=== PATIENT | female | born 1970 | race Caucasian/White ===

== ENCOUNTER 2018-01-06 15:36 | Emergency (ER) | payer MEDICAID, SELFPAY ==
[2018-01-06 15:42] VITALS: BP 143/83; PULSE 103; RESP 16; TEMP 36.2; O2SAT 98
--- NOTE | 2018-01-06 15:50 | DI.RAD_ITS ---
SYMPTOM/DIAGNOSIS: COUGH, CONGESTION, WHEEZE PA AND LATERAL CHEST: Comparison is made with 08/07/17. Heart size and pulmonary vasculature are within normal limits. No focal consolidating infiltrates, effusions or pneumothoraces are identified. There is mild atelectasis in the left lingula. Old healed rib fractures are seen on the left. There is an old left scapular fracture. IMPRESSION: Left basilar atelectasis.
--- NOTE | 2018-01-06 15:51 | W.ED.GENAD ---
Discharge Plan Disposition Patient Disposition: HOME Condition: Improving Discharge Details Chief Complaint: RespSymp Clinical Impression: COPD with acute exacerbation Primary Care Provider: Concha Guerrero ED Provider: Julius Contreras Home Meds and New Rx's Prescriptions: New prednisone 20 mg tablet 40 mg PO DAILY 5 Days Qty: 10 RF: 0 Continue albuterol sulfate [ProAir HFA] 200 PUFF/INH HFA aerosol inhaler 2 puff Inhalation Q4H PRN PRNRF: 0 Discharge Instructions Instructions: COPD (Chronic Obstructive Pulmonary Disease) (ED) Medical Decision Making 47-year-old female smoker presents with cough, congestion, wheeze over days time. She was prescribed Augmentin for sinusitis since December 30. She is afebrile, conversant, with normal oxygenation. Differential diagnosis includes COPD exacerbation, bronchitis versus pneumonia, viral syndrome. Patient given DuoNeb updraft, oral steroids, referred for chest Xray. Chest x-ray with atelectatic changes of the lingula. No infiltrate. Note of healed previous rib fractures. Patient improved. I will have her continue the Augmentin I will add a burst of steroids. She has a working inhaler and will continue to work on smoking cessation. She stable and appropriate outpatient management of COPD exacerbation. HPI General Mode of arrival: ambulatory. Date/Time Provider Initiated Documentation: 01/06/18 15:42. Limitations to Documentation: no limitations. Information obtained by: patient. History of Present Illness 47 year old F presents to the emergency department with the chief complaint of Cough, described as moderate, Quality is described as aching, and is localized to the chest. Patient reports no radiation. Patient started experiencing this day(s) and it has been constant. Other factors that worsen symptoms (cigarettes) . Patient did receive the following treatments prior to arrival, none HPI Narrative: Cough, congestion, wheeze: 47-year-old female smoker states that she has had 2 weeks of illness that began with a sinusitis and now has progressed to cough, congestion, production of green sputum with associated shortness of breath is minimally responsive to home inhaler. She was prescribed Augmentin by her primary care physician which she has been taking twice daily since December 30. She has not had any recent oral steroids. She is not oxygen dependent. Related Data Home Medications Medication Instructions Recorded Confirmed albuterol sulfate [ProAir HFA] 2 puff INHALATION Q4H PRN PRN 08/07/17 01/06/18 prednisone 40 mg PO DAILY 5 Days #10 tab 01/06/18 Previous Rx's Medication Instructions Recorded prednisone 40 mg PO DAILY 5 Days #10 tab 01/06/18 Allergies Allergy/AdvReac Type Severity Reaction Status Date / Time Sulfa (Sulfonamide Allergy Severe Hives Unverified 01/06/18 15:45 Antibiotics) General Stated Complaint: RespSymp FANG: 3 Review of Systems Review of Systems 8 out of 10 systems reviewed and otherwise neg PFSH Social History Smoking/Tobacco Use Status: Current every day Exam Narrative Exam Narrative: GEN: awake, alert, oriented 3. Pleasant, well groomed, interactive. HEAD: Normocephalic, atraumatic ENT: Mucous membranes moist, oropharynx unremarkable, External ear exam unremarkable EYES: PERRL, EOMI NECK: Full ROM, no JOSE, no menigismus CHEST/RESP: Nontender, bilateral end expiratory wheeze. Cough noted. CARDIOVASCULAR: RRR, no murmur, rub diane. 2+ Rad pulse bilateral ABDOMEN: Soft, nontender, no mass. +Bowel sounds EXT: Full ROM, no edema, no rash Neuro: Grossly normal neurologic exam, conversant, interactive. Psych: Speech fluent, thoughts congruent, affect normal Course Vital Signs Temperature 36.2 C L 01/06/18 15:42 Pulse 103 H 01/06/18 15:42 Respiratory Rate 16 01/06/18 15:42 Blood Pressure 143/83 H 01/06/18 15:42 Pulse Oximetry 98 01/06/18 15:42 Temperature 36.2 C L 01/06/18 15:42 Temperature Source Skin 01/06/18 15:42 Pulse 103 H 01/06/18 15:42 Respiratory Rate 16 01/06/18 15:42 Respiratory Effort Non-Labored 01/06/18 15:42 Blood Pressure 143/83 H 01/06/18 15:42 Blood Pressure Position Sitting 01/06/18 15:42 Pulse Oximetry 98 01/06/18 15:42 Oxygen Delivery Method Room Air 01/06/18 15:42 Oxygen Flow Rate 0 01/06/18 15:42 Pain Level 4 01/06/18 15:42
--- NOTE | 2018-01-06 15:54 | ED.GENADUL_ITS ---
Discharge Plan Disposition Patient Disposition: HOME Condition: Improving Discharge Details Chief Complaint: RespSymp Clinical Impression: COPD with acute exacerbation Primary Care Provider: Concha Guerrero ED Provider: Julius Contreras Home Meds and New Rx's Prescriptions: New prednisone 20 mg tablet 40 mg PO DAILY 5 Days Qty: 10 RF: 0 Continue albuterol sulfate [ProAir HFA] 200 PUFF/INH HFA aerosol inhaler 2 puff Inhalation Q4H PRN PRNRF: 0 Discharge Instructions Instructions: COPD (Chronic Obstructive Pulmonary Disease) (ED) Medical Decision Making 47-year-old female smoker presents with cough, congestion, wheeze over days time. She was prescribed Augmentin for sinusitis since December 30. She is afebrile, conversant, with normal oxygenation. Differential diagnosis includes COPD exacerbation, bronchitis versus pneumonia, viral syndrome. Patient given DuoNeb updraft, oral steroids, referred for chest Xray. Chest x-ray with atelectatic changes of the lingula. No infiltrate. Note of healed previous rib fractures. Patient improved. I will have her continue the Augmentin I will add a burst of steroids. She has a working inhaler and will continue to work on smoking cessation. She stable and appropriate outpatient management of COPD exacerbation. HPI General Mode of arrival: ambulatory . Date/Time Provider Initiated Documentation: 01/06/18 15:42 . Limitations to Documentation: no limitations . Information obtained by: patient . History of Present Illness 47 year old F presents to the emergency department with the chief complaint of Cough, described as moderate, Quality is described as aching, and is localized to the chest. Patient reports no radiation. Patient started experiencing this day(s) and it has been constant. Other factors that worsen symptoms (cigarettes) . Patient did receive the following treatments prior to arrival, none HPI Narrative: Cough, congestion, wheeze: 47-year-old female smoker states that she has had 2 weeks of illness that began with a sinusitis and now has progressed to cough, congestion, production of green sputum with associated shortness of breath is minimally responsive to home inhaler. She was prescribed Augmentin by her primary care physician which she has been taking twice daily since December 30. She has not had any recent oral steroids. She is not oxygen dependent. Related Data Home Medications Medication Instructions Recorded Confirmed albuterol sulfate [ProAir HFA] 2 puff INHALATION Q4H PRN PRN 08/07/17 01/06/18 prednisone 40 mg PO DAILY 5 Days #10 tab 01/06/18 Previous Rx's Medication Instructions Recorded prednisone 40 mg PO DAILY 5 Days #10 tab 01/06/18 Allergies Allergy/AdvReac Type Severity Reaction Status Date / Time Sulfa (Sulfonamide Allergy Severe Hives Unverified 01/06/18 15:45 Antibiotics) General Stated Complaint: RespSymp FANG: 3 Review of Systems Review of Systems 8 out of 10 systems reviewed and otherwise neg PFSH Social History Smoking/Tobacco Use Status: Current every day Exam Narrative Exam Narrative: GEN: awake, alert, oriented 3. Pleasant, well groomed, interactive. HEAD: Normocephalic, atraumatic ENT: Mucous membranes moist, oropharynx unremarkable, External ear exam unremarkable EYES: PERRL, EOMI NECK: Full ROM, no JOSE, no menigismus CHEST/RESP: Nontender, bilateral end expiratory wheeze. Cough noted. CARDIOVASCULAR: RRR, no murmur, rub diane. 2+ Rad pulse bilateral ABDOMEN: Soft, nontender, no mass. +Bowel sounds EXT: Full ROM, no edema, no rash Neuro: Grossly normal neurologic exam, conversant, interactive. Psych: Speech fluent, thoughts congruent, affect normal Course Vital Signs Temperature 36.2 C L 01/06/18 15:42 Pulse 103 H 01/06/18 15:42 Respiratory Rate 16 01/06/18 15:42 Blood Pressure 143/83 H 01/06/18 15:42 Pulse Oximetry 98 01/06/18 15:42 Temperature 36.2 C L 01/06/18 15:42 Temperature Source Skin 01/06/18 15:42 Pulse 103 H 01/06/18 15:42 Respiratory Rate 16 01/06/18 15:42 Respiratory Effort Non-Labored 01/06/18 15:42 Blood Pressure 143/83 H 01/06/18 15:42 Blood Pressure Position Sitting 01/06/18 15:42 Pulse Oximetry 98 01/06/18 15:42 Oxygen Delivery Method Room Air 01/06/18 15:42 Oxygen Flow Rate 0 01/06/18 15:42 Pain Level 4 01/06/18 15:42
[2018-01-06 15:55] VITALS: RESP 15; RESP 8
[2018-01-06] MEDS: Albuterol/Ipratropium 3 ML UPD VIAL UPD (15:55)
[2018-01-06] MEDS: predniSONE 20 MG TAB 60 MG PO (15:55)
[2018-01-06 16:25] VITALS: RESP 19; RESP 8
--- NOTE | 2018-01-06 16:47 | DI.VRAD_ITS ---
EXAM: XR Chest, 2 Views CLINICAL HISTORY: 47 years old, female; Signs and symptoms; Cough TECHNIQUE: Frontal and lateral views of the chest. COMPARISON: CR CHEST 2 VIEWS PA,LAT 08/07/2017 5:01 PM FINDINGS: Lungs: Subsegmental atelectasis in the lingula, interval finding Pleural space: Unremarkable. No pneumothorax. Heart: Unremarkable. No cardiomegaly. Mediastinum: Prominent Bones/joints: Old healed rib fractures, stable. Old fracture deformity of the left scapula, stable IMPRESSION: Subsegmental atelectasis in the lingula. Dictated and Authenticated by: Desirae Chapman MD. Ordering:ALONDRA GILMORE MD
[2018-01-06 16:55] VITALS: RESP 16; O2SAT 98
== END 2018-01-06 16:57 | disposition home or self-care (01) ==
PROVIDERS: Emergency Provider Emergency Medicine; PCP Nurse Practitioner Family
DX: J44.1 Chronic obstructive pulmonary disease with (acute) exacerbation (principal); F17.210 Nicotine dependence, cigarettes, uncomplicated
CPT/HCPCS: 94640; 99283; 71046; J7512; J7620

== ENCOUNTER 2018-01-08 11:23 | Emergency (ER) | payer MEDICAID, SELFPAY ==
[2018-01-08 11:30] VITALS: BP 150/89; PULSE 79; RESP 16; TEMP 36.5; O2SAT 96
--- NOTE | 2018-01-08 11:54 | DI.RAD_ITS ---
SYMPTOMS/DIAGNOSIS: COUGH, FEVER PA AND LATERAL CHEST: Comparison 08/07/17 and 01/06/18. The heart size and pulmonary vasculature are within normal limits. No consolidating infiltrates, effusions or pneumothoraces are identified. There are old healed fractures involving left clavicle and the left scapula. IMPRESSION: No definite acute pulmonary process.
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
--- NOTE | 2018-01-08 12:07 | ED.GENADUL_ITS ---
Discharge Plan Disposition Patient Disposition: HOME Condition: Improving Discharge Details Chief Complaint: RespSymp Clinical Impression: Infection, respiratory tract, Bronchitis Primary Care Provider: Concha Guerrero ED Provider: Dk Brasher Home Meds and New Rx's Prescriptions: New doxycycline hyclate 100 mg capsule 100 mg PO BID Qty: 19 RF: 0 benzonatate [Tessalon Perles] 100 mg capsule 200 mg PO Q8H PRN PRN (Reason: cough) Qty: 30 RF: 0 Continue albuterol sulfate [ProAir HFA] 200 PUFF/INH HFA aerosol inhaler 2 puff Inhalation Q4H PRN PRNRF: 0 prednisone 20 mg tablet 40 mg PO DAILY 5 Days Qty: 10 RF: 0 Discontinued amoxicillin-pot clavulanate [Augmentin] 875-125 mg Tablet 1 tab PO Q12H RF: 0 Discharge Instructions Instructions: Acute Bronchitis (ED) Additional Instructions: Return immediately to the emergency department for new or worsening symptoms including severe chest pain, difficulty breathing that worsens, high fevers, or any further concerns. Otherwise tomorrow contact your primary care office for arrangement of appointment preferably next Friday Stand Alone Forms: Work Release Referrals: Concha Guerrero [Primary Care Provider] - 5 days Discharge Data Discharge Date/Time-TO BE ENTERED AT DEPARTURE: 01/08/18 14:12 Medical Decision Making Patient presenting to the emergency department for chief complaint of worsening cough and cold type symptoms. She states that these started occurring approximately 10 days ago and was seen by her primary care 4 days into illness and placed upon Augmentin. Patient was then seen 2 days ago in the emergency department and Augmentin was represcribed along with some prednisone. Patient states that she has been continued to run fever and chills and having worsening cough symptoms. Patient also does state some left ankle bruising that she noted without apparent injury or trauma. Patient states concern for possible blood clot due to noticing a bruise. Physical exam shows findings consistent with upper respiratory tract infection and significant wheezing throughout all lung menendez otherwise patient is stable with no signs of respiratory distress. Lower extremity assessment does show some ecchymosis to right anterior ankle but otherwise is unremarkable. With further questioning of patient in regards to blood clot she states that this occurred approximately 8 years ago after trauma and she has had no other blood clot history and has not been on any blood thinners after the initial episode. Patient states no familial history of known clotting disorder. I feel that more than likely patient is suffering from either worsening respiratory tract infection, bronchitis, or pneumonia. Given the patient is afebrile, non-tachycardic, normal respirations, and normal O2 sat I doubt PE and see no evidence for further investigation of this given that patient's symptoms started with upper respiratory tract infection and has moved into more cough and congestion type symptoms. Do not feel that further investigation of this is warranted. Plan to check labs, repeat radiological imaging of the chest, IV fluids, Toradol, and DuoNeb and reassess patient. Review of labs show no significant leukocytosis, normal lactate, and otherwise unremarkable. Chest x-ray does not appear to show any change or obvious signs of pneumonia and radiologist states no acute findings noted. Patient was reassessed and had improvement of wheezing but did still have some minimal expiratory wheezing specifically in the right lower base but patient was having a coughing spell during the episode making it fully difficult to auscultate clearly all lung menendez. Given continued wheezing patient ordered second DuoNeb , IV Solu-Medrol, and Tessalon Perles as I suspect more of a bronchitis. Given that patient has been on Augmentin and not showing signs of improvement patient placed upon doxycycline. We will continue to keep patient for a while longer to reassess any improvement after second nebulizer treatment. Patient reassessed after second nebulizer and other above listed medication and patient states improvement of cough, and chest tightness. Given that patient is improving, no hypoxia, no tachycardia, and otherwise stable with no acute findings on chest x-ray patient was discharged with diagnosis of respiratory tract infection and bronchitis with patient being placed upon doxycycline, given spacer for her home albuterol that she already has, and prescribed Tessalon Perles. Patient given work note and encouraged to get plenty of rest and drink plenty fluid and to return for any new or worsening symptoms otherwise to follow-up with her primary care provider early next week which she is placed on care management list to aid with this appointment. After discussion of diagnosis and plan of care patient has no further needs, questions , or concerns and states clear understanding to return to the emergency department for any worsening symptoms. HPI General Mode of arrival: ambulatory . Date/Time Provider Initiated Documentation: 01/08/18 11:34 . Limitations to Documentation: no limitations . Information obtained by: patient, RN notes reviewed and old records reviewed . History of Present Illness 47 year old F presents to the emergency department with the chief complaint of Cough, described as moderate, with intensity rated at 7. Quality is described as aching and sharp, and is localized to the chest. Patient reports no radiation. Patient started experiencing this day(s) (10) and it has been constant. No relieving factors improve symptom(s), No exacerbating factors reported . Patient notes no other symptoms.. Patient did receive the following treatments prior to arrival, other (Prescribed steroid, antibiotic , and inhaler) Related Data Home Medications Medication Instructions Recorded Confirmed albuterol sulfate [ProAir HFA] 2 puff INHALATION Q4H PRN PRN 08/07/17 01/08/18 prednisone 40 mg PO DAILY 5 Days #10 tab 01/06/18 01/08/18 benzonatate [Tessalon Perles] 200 mg PO Q8H PRN PRN #30 cap 01/08/18 doxycycline hyclate 100 mg PO BID #19 cap 01/08/18 Previous Rx's Medication Instructions Recorded prednisone 40 mg PO DAILY 5 Days #10 tab 01/06/18 benzonatate [Tessalon Perles] 200 mg PO Q8H PRN PRN #30 cap 01/08/18 doxycycline hyclate 100 mg PO BID #19 cap 01/08/18 Allergies Allergy/AdvReac Type Severity Reaction Status Date / Time Sulfa (Sulfonamide Allergy Severe Hives Unverified 01/08/18 11:35 Antibiotics) General Stated Complaint: RespSymp FANG: 3 Review of Systems Constitutional Reports body ache(s), Reports chills, Reports fever(s), Denies headache(s) and Reports malaise Eyes Denies eye discharge ENT Reports as per HPI, Denies headache(s), Reports nasal congestion, Reports nasal discharge, Denies neck pain, Reports sinus pressure, Reports sore throat and Denies throat swelling Cardiovascular Denies syncope, Denies rapid heart rate, Denies lightheadedness and Denies dyspnea Respiratory Reports as per HPI, Denies change in phlegm color, Reports chest congestion, Reports cough, Denies hemoptysis, Reports pain with cough and Denies dyspnea Gastrointestinal Denies abdominal pain, Denies diarrhea, Denies nausea and Denies vomiting Musculoskeletal Denies joint swelling and Denies neck pain Integumentary/Breasts Denies rash Neurologic Denies syncope and Denies headache(s) Hematologic/Lymphatic Reports other (Bruising to the right ankle) Allergic/Immunologic Denies throat swelling [facility] Social History Smoking/Tobacco Use Status: Current every day Exam Const General: cooperative, comfortable and no acute distress Orientation: alert and awake HENID Head: normal to inspection, normocephalic and atraumatic Ears: hearing grossly normal bilaterally and TM's normal bilaterally General nose exam: external nose normal Face and sinus: no erythema and sinus tenderness maxillary Mouth: oral mucosae normal, no drooling, no muffled voice and no trismus Throat: posterior oropharynx normal Neck Neck: normal visual inspection, full ROM, no lymphadenopathy, no meningeal signs , trachea midline and supple Resp Effort & Inspection: normal respiratory effort, able to speak in complete sentences and cough Quality of cough: dry Auscultation: wheezes expiratory wheezes (Throughout all lung) Cardio Rate: regular rate Rhythm: regular rhythm Heart Sounds: S1 normal, S2 normal, normal S1 and S2, no click, no gallops, no murmurs and no rubs Skin General skin exam: no rashes or lesions noted and dry skin (warm) Neuro General: alert, awake, oriented x3, gait normal and moves all extremities Cognition: normal cognition Speech: speech normal Extrem Right lower extremity: hip/thigh Details: normal to inspection; no tenderness, knee Details: normal to inspection; no tenderness, lower leg Details: no tenderness and edema noted and ankle Details: ecchymosis (Anterior ankle); no tenderness, no swelling and edema Left lower extremity: normal to inspection Course Vital Signs Temperature 36.5 C 01/08/18 11:30 Pulse 79 01/08/18 11:30 Respiratory Rate 16 01/08/18 11:30 Blood Pressure 150/89 H 01/08/18 11:30 Pulse Oximetry 96 01/08/18 11:30 Temperature 36.5 C 01/08/18 11:30 Temperature Source Temporal Artery Scan 01/08/18 11:30 Pulse 79 01/08/18 11:30 Respiratory Rate 16 01/08/18 11:30 Respiratory Effort Incrsd Work of Breathing 01/08/18 11:36 Respiratory Depth Normal 01/08/18 11:36 Blood Pressure 150/89 H 01/08/18 11:30 Pulse Oximetry 96 01/08/18 11:30 Oxygen Delivery Method Room Air 01/08/18 11:30 Oxygen Flow Rate 0 01/08/18 11:30 Pain Level 8 01/08/18 11:30
[2018-01-08] MEDS: Normal Saline 1,000 ML 1000 ML IV (12:14)
[2018-01-08] MEDS: Ketorolac 30 MG/ML VIAL IVP (12:14)
[2018-01-08 12:15] VITALS: PULSE 79; RESP 18; RESP 4; RESP 7; RESP 8; O2SAT 96
[2018-01-08] MEDS: Albuterol/Ipratropium 3 ML UPD VIAL UPD ×2 (12:15→13:22)
[2018-01-08 12:32] LABS: Abs Immature Grans 0.01 k/cumm (0.0-0.09); Absolute Basophil Count 0.02 k/cumm (0.0-0.2); Absolute Eosinophil Count 0.06 k/cumm (0.0-0.7); Absolute Lymphocyte Count 1.04 k/cumm (1.2-3.4); Absolute Monocyte Count 0.36 k/cumm (0.11-0.7); Absolute Neutrophil Count 7.62 k/cumm (1.2-6.7); Basophils % 0.2; Eosinophils % 0.7; HGB 13.7 g/dL (12.0-15.5); Immature Grans % 0.1; Lymphocytes % 11.4; Mean Corp. HGB Concentration 33.4 g/dL (32.0-36.0); Mean Corpuscular Hemoglobin 31.7 pg (27.0-33.0); Mean Corpuscular Volume 94.9 fL (80-95); Mean Platelet Volume 10.1 fL (8.0-11.0); Neutrophils % 83.6; Platelet Count 175 x1000/uL (130-400); RBC 4.32 m/cumm (4.00-5.20); RBC Distribution Width 12.4 % (11.7-14.6); White Blood Cell Count 9.11 k/cumm (4.4-10.8)
[2018-01-08 12:44] LABS: Lactate-non-spesis 1.4 mmol/L (0.6-1.4)
[2018-01-08 12:45] VITALS: PULSE 75; RESP 16; RESP 4; RESP 7; RESP 8; O2SAT 97
[2018-01-08 12:53] LABS: ALT 24 U/L (12-78); AST 17 U/L (15-37); Alkaline Phosphatase 57 U/L (46-116); Anion Gap 9.2 mmol/L (3-11); BUN 12 mg/dL (7-18); Bilirubin, Total 0.3 mg/dL (0.2-1.0); CO2 28.8 mmol/L (21.0-32.0); Calcium 8.7 mg/dL (8.5-10.1); Chloride 104 mmol/L (98-107); Glucose 112 mg/dL (70-100); Potassium 4.5 mmol/L (3.5-5.1); Sodium 142 mmol/L (136-145); Total Protein 7.4 g/dL (6.4-8.2)
[2018-01-08] MEDS: Doxycycline Hyclate 100 MG CAP PO (13:22)
[2018-01-08] MEDS: Benzonatate 100 MG CAP 200 MG PO (13:22)
[2018-01-08] MEDS: methylPREDNISolone SUCC 125 MG VIAL IVP (13:22)
[2018-01-08 14:13] VITALS: BP 150/89; PULSE 75; RESP 16; TEMP 36.5; O2SAT 97
--- NOTE | 2018-01-09 12:54 | PDOC.ERCMPRO ---
Care Management Progress Note 01/09/18-Pt seen with UTI on 01/08/18 by DEIDRE Steward. F/U faxed to Pt's PCP, NAVA Harman at [facility].
== END 2018-01-08 14:12 | disposition home or self-care (01) ==
PROVIDERS: Emergency Provider Nurse Practitioner Family; PCP Nurse Practitioner Family
DX: J20.9 Acute bronchitis, unspecified (principal); F17.210 Nicotine dependence, cigarettes, uncomplicated
CPT/HCPCS: 36415; 80053; 94640; 96360; 99284; 71046; 83605; 85025; J1885; J2930; J7620

== ENCOUNTER 2018-02-25 20:38 | Emergency (ER) | payer MEDICAID, SELFPAY ==
[2018-02-25 21:02] VITALS: BP 112/64; PULSE 89; RESP 14; TEMP 36.7; O2SAT 98
[2018-02-25] MEDS: HYDROcodone 5/Acetaminophen 325 TAB PO (22:05)
[2018-02-25] MEDS: Lidocaine 5% Patch 1 PATCH TP (22:05)
[2018-02-25] MEDS: Cyclobenzaprine 10 MG TAB PO (22:05)
--- NOTE | 2018-02-25 22:39 | ED.GENADUL_ITS ---
Discharge Plan Disposition Patient Disposition: HOME Condition: Stable Discharge Details Chief Complaint: GenMedical Clinical Impression: Acute thoracic myofascial strain, Fibromyalgia Primary Care Provider: Concha Guerrero ED Provider: Dk Brasher Home Meds and New Rx's Prescriptions: New cyclobenzaprine 10 mg tablet 10 mg PO TID PRN (Reason: muscle spasm) Qty: 15 RF: 0 Discharge Instructions Instructions: Muscle Strain (ED) Additional Instructions: Feel free to return immediately to the emergency department for any new or worsening symptoms otherwise follow-up with your primary care provider for reassessment next week. You may also continue to use acetaminophen or Motrin is recommended that you take 600 mg ibuprofen and thousand milligrams acetaminophen at the same time every 6 hours as needed for discomfort. Referrals: Concha Guerrero [Primary Care Provider] - (For reassessment) Discharge Data Discharge Date/Time-TO BE ENTERED AT DEPARTURE: 02/25/18 22:53 Medical Decision Making Left upper thoracic muscle strain due to increased work. Physical exam shows muscular tension of left upper thoracic muscles otherwise benign examination. Patient has history of fibromyalgia. Patient given one [place] in the emergency department and prescription for Flexeril and encouraged to take over-the- counter pain medication and follow-up with primary care provider next week which she states she has an appointment early next week for reassessment. HPI General Mode of arrival: ambulatory . Date/Time Provider Initiated Documentation: 02/25/18 21:10 . Limitations to Documentation: no limitations . Information obtained by: patient and RN notes reviewed . History of Present Illness 47 year old F presents to the emergency department with the chief complaint of Back pain, muscle pain, described as severe and similar to prior episodes, with intensity rated at 9. Quality is described as sharp, and is localized to the back. Patient reports radiation to (All muscles hurt). Patient started experiencing this day(s) (1) No relieving factors improve symptom(s), Movement worsens symptoms . Patient notes no other symptoms.. Patient did receive the following treatments prior to arrival, NSAID Related Data Home Medications Medication Instructions Recorded Confirmed cyclobenzaprine 10 mg PO TID PRN #15 tab 02/25/18 Previous Rx's Medication Instructions Recorded cyclobenzaprine 10 mg PO TID PRN #15 tab 02/25/18 Allergies Allergy/AdvReac Type Severity Reaction Status Date / Time Sulfa (Sulfonamide Allergy Severe Hives Unverified 02/25/18 21:05 Antibiotics) General Stated Complaint: GenMedical FANG: 4 Review of Systems Constitutional Denies chills, Denies fever(s), Denies frequent falls and Reports malaise Cardiovascular Denies chest pain, Denies syncope and Denies edema Musculoskeletal Reports as per HPI, Reports back pain, Reports myalgias and Denies numbness Neurologic Denies syncope, Denies frequent falls and Denies numbness Exam Const General: cooperative, healthy appearing and no acute distress Orientation: alert, awake and oriented x3 Resp Effort & Inspection: normal respiratory effort and able to speak in complete sentences Auscultation: clear to auscultation bilaterally Cardio Rate: regular rate Rhythm: regular rhythm Heart Sounds: S1 normal and S2 normal Back/Spine/Pelvis Cervical Spine: normal cervical lordosis, cervical ROM normal, cervical muscular tenderness and No cervical spinal tenderness Thoracic/Lumbar Spine: thoracic and lumbar spine normal to inspection, pain with thoraco-lumbar ROM, paraspinal tenderness, No thoraco-lumbar spasm, No thoracic spinal tenderness and No lumbar spinal tenderness Neuro General: alert, awake and oriented x3 Course Vital Signs Temperature 36.7 C 02/25/18 21:02 Pulse 89 02/25/18 21:02 Respiratory Rate 14 02/25/18 21:02 Blood Pressure 112/64 02/25/18 21:02 Pulse Oximetry 98 02/25/18 21:02 Temperature 36.7 C 02/25/18 21:02 Temperature Source Temporal Artery Scan 02/25/18 21:02 Pulse 89 02/25/18 21:02 Respiratory Rate 14 02/25/18 21:02 Respiratory Effort 02/25/18 21:05 Blood Pressure 112/64 02/25/18 21:02 Blood Pressure Position Sitting 02/25/18 21:02 Pulse Oximetry 98 02/25/18 21:02 Oxygen Delivery Method Room Air 02/25/18 21:02 Oxygen Flow Rate 0 02/25/18 21:02 Pain Level 10 02/25/18 21:02
== END 2018-02-25 22:53 | disposition home or self-care (01) ==
PROVIDERS: Emergency Provider Nurse Practitioner Family; PCP Nurse Practitioner Family
DX: S29.012A Strain of muscle and tendon of back wall of thorax, initial encounter (principal); M79.7 Fibromyalgia; X50.0XXA Overexertion from strenuous movement or load, initial encounter
CPT/HCPCS: 99283

== ENCOUNTER 2022-12-06 09:18 | Emergency (ER) | payer MEDICAID, SELFPAY ==
[2022-12-06 09:26] VITALS: BP 164/90; PULSE 83; RESP 18; TEMP 36.8; O2SAT 99
[2022-12-06] MEDS: Ibuprofen 600 MG TAB PO (09:45)
--- NOTE | 2022-12-06 10:10 | DI.RAD_ITS ---
Exam(s) XR HAND LT COMPLETE EXAM: XR HAND LT COMPLETE CLINICAL HISTORY: Crush injury. TECHNIQUE: 2D digital imaging was performed. Three views. COMPARISON: No exams were available for comparison FINDINGS: BONES: No acute fracture is present. No bony destructive lesion is seen. JOINTS: No dislocation present. No significant degenerative changes. SOFT TISSUE: Normal. IMPRESSION: Unremarkable radiographs of the left hand. DATA REPOSITORY: RADIATION DOSE DELIVERED:
--- NOTE | 2022-12-06 10:36 | ED.GENADUL_ITS ---
Discharge Plan Disposition Patient Disposition: Home Discharge Details Clinical Impression: Crushing injury of left hand Primary Care Provider: Unknown,Unknown ED Provider: Dk Brasher Home Meds and New Rx's Prescriptions: No Action cyclobenzaprine 10 mg tablet 10 mg PO TID PRN (Reason: muscle spasm) Qty: 15 0RF Discharge Instructions Instructions: Crush Injury (ED) Additional Instructions: Continue to apply ice to help with swelling and you may take [id number] ibuprofen as needed for pain and discomfort. You may use the provided brace to also help with discomfort and stability. You may slowly advance activities as tolerated by pain and discomfort and follow-up with primary care as needed for reassessment Referrals: Primary Care Provider [Outside] (As needed for reassessment) Discharge Data Discharge Date/Time-TO BE ENTERED AT DEPARTURE: 12/06/22 11:03 Medical Decision Making Patient presenting to the emergency department for chief complaint of left hand injury. She states while she was at work she had her hand crushed in between the wall and a piece of machinery. Patient denies any other injury or trauma. Physical exam shows superficial lacerations over the thumb and dorsal hand along with some ecchymosis and swelling with tenderness to the thumb and over the second metacarpal. Exam is otherwise unremarkable. We will perform radiological imaging for evaluation of fracture versus crush injury/contusion. Pending results will give ibuprofen. Review of radiological imaging and radiologist interpretation shows no acute findings patient placed in hand splint and encouraged to use [id number] pain medication as needed for further discomfort. After discussion of diagnosis and plan of care patient has no further needs, questions, or concerns and states clear understanding to return to the emergency department for any worsening symptoms. This documentation was generated using [employer]ation system, please disregard any oddities of phrase or misspellings. Imaging Data Radiologic Study: Imaging: X-Ray Radiologist's impression: Exam(s) XR HAND LT COMPLETE EXAM: XR HAND LT COMPLETE CLINICAL HISTORY: Crush injury. TECHNIQUE: 2D digital imaging was performed. Three views. COMPARISON: No exams were available for comparison FINDINGS: BONES: No acute fracture is present. No bony destructive lesion is seen. JOINTS: No dislocation present. No significant degenerative changes. SOFT TISSUE: Normal. IMPRESSION: Unremarkable radiographs of the left hand. HPI General Mode of arrival: ambulatory . Date/Time Provider Initiated Documentation: 12/06/22 09:39 . Limitations to Documentation: no limitations . Information obtained by: patient and RN notes reviewed . History of Present Illness 52 year old F presents to the emergency department with the chief complaint of Left hand injury, described as severe, Quality is described as crushing and sharp, and is localized to the left and upper extremity. Patient reports no radiation. Patient started experiencing this hour(s) (1) and it has been constant. No relieving factors improve symptom(s), Movement worsens symptoms . Patient notes no other symptoms.. Patient did receive the following treatments prior to arrival, none Related Data Home Medications Medication Instructions Recorded Confirmed cyclobenzaprine 10 mg tablet 10 mg PO TID PRN muscle spasm #15 02/25/18 tabs Previous Rx's Medication Instructions Recorded cyclobenzaprine 10 mg tablet 10 mg PO TID PRN muscle spasm #15 02/25/18 tabs Allergies Allergy/AdvReac Type Severity Reaction Status Date / Time Sulfa (Sulfonamide Allergy Severe Hives Unverified 02/25/18 21:05 Antibiotics) General Stated Complaint: Orthopedic FANG: 4 Review of Systems Narrative: 6 systems reviewed and unremarkable except what is marked below. Musculoskeletal Musculoskeletal: Reports as per HPI, Reports arthralgias, Reports joint swelling, Reports limited range of motion, Denies numbness and Denies tingling Integumentary/Breasts Skin/Breast: Reports wounds Neurologic Neurologic: Denies numbness and Denies tingling PFSH All Active Problems Crushing injury of left hand (Acute) Social History Smoking/Tobacco Use Status: Current every day Smoking risk assessment performed?: Yes Alcohol Intake: current Alcohol Intake frequency: a few times a month Drug use: Never Do you feel safe in your relationship?: Yes Exam Const General: cooperative, no acute distress and not ill appearing Orientation: alert, awake and oriented x3 HENMT Mouth: moist mucous membranes Resp Effort & Inspection: normal respiratory effort, able to speak in complete sentences and no respiratory distress Cardio Rate: regular rate Rhythm: regular rhythm Pulses: normal peripheral pulses Skin General skin exam: no rashes or lesions noted Neuro General: patient alert, patient awake, patient oriented x3, moves all extremities and no focal motor deficits Sensory Exam: no sensory deficits noted Extrem General: normal exam except as noted Left upper extremity: hand Details: normal capillary refill, neurosensory exam normal Details: radial nerve sensory function normal, ulnar nerve sensory function normal, median nerve sensory function normal and digital nerve sensory function normal, tendon exam normal, tenderness Location: of the dorsal hand Location: over the 1st metacarpal and of the thumb Location: involving the entire digit and swelling Location: of the dorsal hand Location: over the 1st metacarpal and of the thumb Location: at the distal phalanx Course Vital Signs Vital signs: Vital Signs Temperature 36.8 C 12/06/22 09:26 Pulse 83 12/06/22 09:26 Respiratory Rate 18 12/06/22 09:26 Blood Pressure 164/90 H 12/06/22 09:26 Pulse Oximetry 99 12/06/22 09:26 Temperature 36.8 C 12/06/22 09:26 Temperature Source Oral 12/06/22 09:26 Pulse 83 12/06/22 09:26 Respiratory Rate 18 12/06/22 09:26 Respiratory Effort Normal, Non-Labored 12/06/22 09:36 Blood Pressure 164/90 H 12/06/22 09:26 Pulse Oximetry 99 12/06/22 09:26 Pain Level 10 12/06/22 09:26
== END 2022-12-06 11:03 | disposition home or self-care (01) ==
PROVIDERS: Emergency Provider Nurse Practitioner Family
DX: S67.22XA Crushing injury of left hand, initial encounter (principal); X58.XXXA Exposure to other specified factors, initial encounter
CPT/HCPCS: 99283; 73130

== ENCOUNTER 2023-12-09 09:52 | Emergency (ER) | payer OTHER, SELFPAY ==
[2023-12-09 10:04] VITALS: BP 137/83; PULSE 77; RESP 12; TEMP 36.2; O2SAT 98
--- NOTE | 2023-12-09 10:15 | DI.CT_ITS ---
Exam(s) CT FACIAL WO EXAM: CT FACIAL WO CLINICAL HISTORY: facial trauma. TECHNIQUE: Imaging Protocol: Axial computed tomography images with coronal and sagittal reformatted images were created and reviewed CONTRAST MATERIAL: Intravenous: Omnipaque 350 Contrast volume:structured data in ml mL COMPARISON: No exams were available for comparison FINDINGS: Facial Bones: No definite fracture is noted in facial bones. Sinuses and Mastoids: Mucosal thickening is seen in the right maxillary sinus. The remaining visual ized paranasal sinuses are clear. Globes, extraocular muscles, optic nerves and retrobulbar fat: Normal. Upper aerodigestive tract: Normal. Mandible and bilateral temporomandibular joints: Normal. Soft tissues: There is soft tissue swelling of the left cheek. No subcutaneous air is seen. Enhancement: No abnormal enhancement. IMPRESSION: 1. No evidence of fracture/dislocation in facial bones. 2. Soft tissue swelling over the left cheek. RADIATION DOSE DELIVERED: 566.16mGy.cm Total DLP DATA REPOSITORY: All CT scans at this facility are submitted to the National Radiology Data Registry (NRDR) Dose Index Registry (DIR) with the [employer] ([employer]). RADIATION OPTIMIZATION: All CT scans at this facility use at least one of these dose optimization te chniques: automated exposure control; mA and/or kV adjustment per patient size (includes targeted exa ms where dose is matched to clinical indication); or iterative reconstruction.
[2023-12-09] MEDS: Acetaminophen 500 MG TAB 1000 MG PO (10:18)
--- NOTE | 2023-12-09 10:19 | W.ED.GENAD ---
Discharge Plan Disposition Patient Disposition: Home Discharge Details Clinical Impression: Facial trauma Primary Care Provider: Unknown,Unknown ED Provider: Jenna Terrell Home Meds and New Rx's Prescriptions: No Action No Known Home Meds Discharge Instructions Instructions: Minor Head Injury, Adult ED Additional Instructions: no fractures noted today will likely have bruising and swelling for several days continue ice and motrin/ tylenol for pain HPI General Date/Time Provider Initiated Documentation: 12/09/23 09:59. Limitations to Documentation: no limitations. Information obtained by: patient. HPI Narrative: 53-year-old female without significant past medical history presents for evaluation of facial trauma. She reports just prior to arrival she tripped after misjudging a stair and fell. She landed on her left knee, left hand and hit her face. She reports swelling and bruising noted in her face and reports some pain at that area, she denies any visual change or pain with eye movement. She reports some very minor pain in her left hand, no pain in her left wrist, small injury to her left knee, but does not have any walking or using her knee. Related Data Home Medications ?Medication ?Instructions ?Recorded ?Confirmed Unknown [No Known Home Meds] 12/09/23 12/09/23 Allergies Allergy/AdvReac Type Severity Reaction Status Date / Time Sulfa (Sulfonamide Allergy Severe Hives Unverified 12/09/23 10:06 Antibiotics) General Stated Complaint: Trauma FANG: 3 Exam Narrative Exam Narrative: Review of Systems: All systems reviewed & are unremarkable except as noted in HPI and below Well-developed, no acute distress Left periorbital swelling and bruising noted over the left zygoma, no facial instability or crepitus, no malocclusion PERRL, normal conjunctiva , no signs of entrapment RRR Unlabored respiratory effort Left hand without bruising or deformity, wrist nontender Left knee with anterior abrasion, no swelling or deformity Course Vital Signs Vital signs: Vital Signs Temperature 36.2 C L 12/09/23 10:04 Pulse 77 12/09/23 10:04 Respiratory Rate 12 12/09/23 10:04 Blood Pressure 137/83 12/09/23 10:04 Pulse Oximetry 98 12/09/23 10:04 Temperature 36.2 C L 12/09/23 10:04 Temperature Source Skin 12/09/23 10:04 Pulse 77 12/09/23 10:04 Respiratory Rate 12 12/09/23 10:04 Blood Pressure 137/83 12/09/23 10:04 Blood Pressure Position Sitting 12/09/23 10:04 Pulse Oximetry 98 12/09/23 10:04 Oxygen Delivery Method Room Air 12/09/23 10:04 Oxygen Flow Rate 0 12/09/23 10:04 Pain Level 6 12/09/23 10:04 Medical Decision Making Emergent evaluation after fall. Patient has significant left-sided facial injury. Initial differential includes fracture, contusion. Doubt orbital entrapment given physical exam findings. She is not on any blood thinner or anticoagulant, there was no loss of consciousness or any vomiting concerning for intracranial injury. I will get a CT scan of her face to evaluate for traumatic injuries. Her knee and hand do not have significant signs of trauma and a have a low suspicion for injury given the reassuring physical exam findings. CT imaging of the face obtained, radiology report reviewed: There is no sign of facial fracture. Recommended continued local wound care and anticipatory guidance provided to the patient. Return precautions advised. Discharged in good condition. Quality:SDOH Health Related Social Needs: No Data to Display FORMERLY [facility], 1928–1983 All Active Problems (Updated 12/09/23 @ 11:21 by Jenna Terrell MD) Facial trauma (Acute) Social History Smoking/Tobacco Use Status: Current every day Smoking risk assessment performed?: Yes Alcohol Intake: current Alcohol Intake frequency: a few times a month Drug use: Never Do you feel safe in your relationship?: Yes
== END 2023-12-09 11:30 | disposition home or self-care (01) ==
PROVIDERS: Emergency Provider Emergency Medicine
DX: S09.93XA Unspecified injury of face, initial encounter (principal); M79.642 Pain in left hand; Y99.0 Civilian activity done for income or pay
CPT/HCPCS: 99285; 70486; 99283

== ENCOUNTER 2024-12-28 08:20 | Emergency (ER) | payer BC, SELFPAY ==
[2024-12-28 08:25] VITALS: BP 157/100; PULSE 85; RESP 18; TEMP 36.7; O2SAT 98
--- NOTE | 2024-12-28 08:58 | W.ED.GENAD ---
Discharge Plan Disposition Patient Disposition: Home Condition: Improving Discharge Details Clinical Impression: Lumbar paraspinal muscle spasm, Back pain Primary Care Provider: Unknown,Unknown ED Provider: Renee Pizarro Home Meds and New Rx's Prescriptions: New methocarbamol 750 mg tablet 1,500 mg PO TID PRN (Reason: muscle spasm) Qty: 30 0RF celecoxib [Celebrex] 200 mg capsule 200 mg PO BID PRN (Reason: pain) Qty: 20 0RF Continued oxycodone 10 mg tablet 10 mg PO TID PRN albuterol sulfate 90 mcg/actuation HFA aerosol inhaler 2 puff inhalation Q6H PRN oxycodone-acetaminophen 5-325 mg tablet 2 tab PO Q6H Patient Comments: TAKE ONE TABLET BY MOUTH 6 TIMES DAILY FOR 28 DAYS gabapentin 300 mg capsule 300 mg PO TID Patient Comments: TAKE ONE CAPSULE BY MOUTH THREE TIMES A DAY Discharge Instructions Instructions: Low Back Pain ED, Muscle Spasm ED Additional Instructions: As we discussed, your exam is concerning for significant muscle spasms. This should resolve with time and stretching. Please continue to encourage hydration. You may use Tylenol as prescribed, please do not exceed 4000 mg a day and please make sure that you are accounting for the Tylenol it is also in the Percocet you are already prescribed. You may also use Celebrex as prescribed which is a anti-inflammatory that should not cause GI irritation. This is been sent to your pharmacy. You may also use the muscle relaxant, methocarbamol, as prescribed. Please not drink alcohol or drive while using these medications as they can be sedating. Please follow-up with your primary care in the next 2 weeks for reevaluation. Referral for physical therapy is attached. If you develop any increased pain, change in bowel or bladder habits, weakness, sensation changes or other new/worsening symptom please to care urgently once again. Please try to avoid heavy lifting while pain persist. Stand Alone Forms: Physical Therapy Referral Discharge Data Discharge Date/Time-TO BE ENTERED AT DEPARTURE: 12/28/24 11:05 HPI General Date/Time Provider Initiated Documentation: 12/28/24 08:58. Limitations to Documentation: no limitations. Information obtained by: patient, family (friend) and RN notes reviewed. History of Present Illness 54 year old F presents to the emergency department with the chief complaint of back pain, described as severe, Quality is described as stabbing, and is localized to the back. Patient reports no radiation. Patient started experiencing this day(s) and it has been constant. Immobilization improves symptom(s), Movement worsens symptoms . Patient notes no other symptoms.. Patient did receive the following treatments prior to arrival, other (Percocet) Related Data Home Medications ?Medication ?Instructions ?Recorded ?Confirmed albuterol sulfate 90 mcg/actuation 2 puff inhalation Q6H PRN 08/02/24 12/28/24 aerosol inhaler oxycodone 10 mg tablet 10 mg PO TID PRN 08/02/24 12/28/24 celecoxib 200 mg capsule (Celebrex) 200 mg PO BID PRN pain #20 caps 12/28/24 gabapentin 300 mg capsule 300 mg PO TID 12/28/24 12/28/24 methocarbamol 750 mg tablet 1,500 mg (2 x 750 mg) PO TID PRN 12/28/24 muscle spasm #30 tabs oxycodone-acetaminophen 5 mg-325 2 tab PO Q6H 12/28/24 12/28/24 mg tablet Previous Rx's ?Medication ?Instructions ?Recorded celecoxib 200 mg capsule (Celebrex) 200 mg PO BID PRN pain #20 caps 12/28/24 methocarbamol 750 mg tablet 1,500 mg (2 x 750 mg) PO TID PRN 12/28/24 muscle spasm #30 tabs Allergies Allergy/AdvReac Type Severity Reaction Status Date / Time Sulfa (Sulfonamide Allergy Severe Hives Unverified 12/28/24 08:27 Antibiotics) General Stated Complaint: Nk/Back Pain FANG: 3 Review of Systems Constitutional Constitutional: Reports as per HPI, Denies chills, Denies fever(s), Denies frequent falls and Denies headache(s) ENT Ears, Nose, Mouth, and Throat: Denies headache(s) Cardiovascular Cardiovascular: Denies chest pain, Denies dyspnea and Denies dyspnea on exertion Respiratory Respiratory: Denies cough, Denies dyspnea and Denies dyspnea on exertion Gastrointestinal Gastrointestinal: Denies abdominal pain, Denies change in bowel habits and Denies fecal incontinence Genitourinary Genitourinary: Reports as per HPI, Denies urinary incontinence and Denies urinary hesitancy Musculoskeletal Musculoskeletal: Reports as per HPI, Reports back pain, Denies muscle weakness, Denies numbness, Denies radiating pain into limb, Reports stiffness and Denies tingling Integumentary/Breasts Skin/Breast: Reports as per HPI and Denies rash Neurologic Neurologic: Reports as per HPI, Denies frequent falls, Denies headache(s), Denies localized weakness, Denies numbness, Denies radicular pain, Denies sensory deficit, Denies tingling and Denies paresthesias Exam Const General: cooperative, healthy appearing, uncomfortable, no acute distress, well developed and well groomed Nutritional Appearance: average body habitus and well nourished Orientation: alert and awake Eyes General: appearance normal, both eyes and all related structures Neck Neck: normal visual inspection, full ROM, no lymphadenopathy and no meningeal signs Resp Effort & Inspection: normal respiratory effort and able to speak in complete sentences Auscultation: clear to auscultation bilaterally, no rales, no rhonchi and no wheezes Cardio Rate: regular rate Rhythm: regular rhythm Heart Sounds: S1 normal and S2 normal Back/Spine/Pelvis Back: no CVA tenderness Cervical Spine: normal cervical lordosis and cervical ROM normal Thoracic/Lumbar Spine: thoracic and lumbar spine normal to inspection, No surgical scar(s) present, No thoraco-lumbar ROM normal, No mass, pain with thoraco-lumbar ROM, paraspinal tenderness (diffuse tenderness, very tight lumbar spine, muscle spasm), thoraco-lumbar spasm, No thoracic spinal tenderness and No lumbar spinal tenderness (no midline pain) Pelvis: no pain with anterior-posterior compression and no pain with lateral compression Sacroiliac joints: bilaterally nontender Skin General skin exam: no rashes or lesions noted Neuro General: patient alert and patient awake Cognition: normal cognition Speech: speech normal Gait: normal gait Motor: muscle tone normal throughout, strength 5/5 throughout, no movement abnormalities noted and no fasciculations Sensory Exam: no sensory deficits noted (no saddle paresthesias) Extrem General: normal to inspection, full ROM, capillary refill normal, no joint enlargement, no pedal edema, no calf tenderness and normal gait Course Vital Signs Vital signs: Vital Signs Temperature 36.7 C 12/28/24 08:25 Pulse 85 12/28/24 08:25 Respiratory Rate 18 12/28/24 08:25 Blood Pressure 157/100 H 12/28/24 08:25 Pulse Oximetry 98 12/28/24 08:25 Temperature 36.7 C 12/28/24 08:25 Pulse 85 12/28/24 08:25 Respiratory Rate 18 12/28/24 08:25 Blood Pressure 157/100 H 12/28/24 08:25 Pulse Oximetry 98 12/28/24 08:25 Medical Decision Making Patient is a pleasant 54-year-old female past medical history significant for fibromyalgia, presenting today with chief complaint of lower back pain that has been present for the past 3 days and continues to worsen. She reports that she had GI bug over the weekend with vomiting and diarrhea, the symptoms have since resolved. She reports that when she was having 1 of these episodes she had turned to reach for something and had a sudden onset of back pain. She reports that she has had back pain like this historically that can come and go and perfect particular be provoked with certain movements. She reports that she is on chronic pain management for fibromyalgia but that despite these, as well as massage yesterday, her back and pain continues to increase and is now limiting her ability to perform her daily functions as she is so stiff. She denies any incontinence, change in bowel or bladder habits, sensory deficits, weakness. She does report that she has had small amount of urinary incontinence but associates this with chronic issue after having children, no acute change in this. On exam, patient appears uncomfortable and stiff but otherwise nontoxic and hemodynamically stable. She has no midline tenderness with palpation, no appreciable step-off. Pain is more lateral and particularly worse over the lumbar spine where she has diffuse bilateral muscle spasms. She has no saddle paresthesias. No abdominal tenderness. Moving her legs and ambulating well, no evidence of neurological deficit. Her history and exam sound very mechanical, no indication to suggest infectious etiology, cauda equina, fracture or other more emergent cause of her discomfort. However, with the significance of her muscle spasm, I am believe she will benefit from a muscle relaxant to allow for her to be able to move and release these spasms on her own. Will give a dose of methocarbamol. She does have issues with anti-inflammatories causing irritation to her stomach so we will also give a dose of Celebrex as well as lidocaine patch. She did take acetaminophen and her oxycodone this morning as well as her baseline Neurontin. After the Celebrex, lidocaine patch and methocarbamol, patient is feeling slightly improved although continues to move stiff, she is moving much more than she had been initially. She feels ready for discharge at this time. We did discuss return to activities I encourage movement gentle stretching but advised that she stay away from any heavy lifting as this could increase her discomfort. I encouraged physical therapy, referral was given. Will continue her on these medications, these are sent to her pharmacy. She was advised not to drive or drink alcohol with these medications. Regarding mixing with the narcotics, patient has been on those chronically and did do well with them historically. We did disucss the concerns and making sure to take things only as instructed. Encouraged close f/u with PCP. Return precautions discussed. All of her questions and concerns were addressed, she is in agreement with this plan. PFSH All Active Problems (Updated 12/28/24 @ 10:45 by RILEY Bond) Back pain (Acute) Lumbar paraspinal muscle spasm (Acute) Social History Smoking/Tobacco Use Status: Current every day Smoking risk assessment performed?: Yes Alcohol Intake: current Alcohol Intake frequency: holidays/special occasions only Drug use: Never Substance use type: does not use Do you feel safe at home: Yes Do you feel safe in your relationship?: Yes PAWSS Have you Been Recently Intoxicated or Drunk Within the Last 30 days?: No Have you Ever Experienced Previous Episodes of Alcohol Withdrawal?: No Have you ever Experienced Withdrawal Seizures?: No Have you ever Experienced Delirium Tremens(DT)s?: No Have you ever undergone Alcohol Rehabilitation Treatment (i.e, inpt ot outpatient treatment programs)?: No Have you ever Experienced Blackouts?: No Have you ever Combined Alcohol with other Downers within the last 90 days?: No Have you ever Combined Alcohol with any other Substance of Abuse during the last 90 days?: No Positive Blood Alcohol level on Presentation? [PCS.BAL]: No Evidence of Increased Autonomic Activity (i.e. HR>120, tremor, sweating, agitation, nausea)?: No Result: 0
[2024-12-28] MEDS: Lidocaine 5% Patch 1 PATCH TP (09:53)
[2024-12-28] MEDS: Celecoxib 200 MG CAP PO (09:54)
[2024-12-28] MEDS: Methocarbamol 750 MG TAB 1500 MG PO (09:54)
== END 2024-12-28 11:05 | disposition home or self-care (01) ==
PROVIDERS: Emergency Provider Physician Assistant
DX: M62.830 Muscle spasm of back; M54.50 Low back pain, unspecified
CPT/HCPCS: 99283 ×2